=== PATIENT | female | born 1930 | race African-American/Black ===

== ENCOUNTER 2017-12-31 14:21 | Inpatient (IN) | payer OTHER ==
[~2017-12-31] VITALS: Ht 162.6 cm; Wt 82.1 kg
--- NOTE | ~2017-12-31 | 2DMMODE ---
[facility] [address] [address] 2 D/M-MODE ECHOCARDIOGRAM Name: RICHARD ANGEL Room #: 353-P [facility] IN .R.#: [id number] Admission: 12/31/17 Attend Phys: Clark Zamora, Discharge: Date of : 30 Date of Service: 01/01/18 1057 Report #: [id number] THIS REPORT FOR: //name// APPROVED REPORT Study performed: 01/01/2018 08:38:45 EXAM: Comprehensive 2D, Doppler, and color-flow Echocardiogram Patient Location: Bedside Room #: 353 Status: routine BSA: 1.87 HR: 58 bpm BP: 128/83 mmHg Other Information Study Quality: Good Indications CVA/TIA Pacemaker Hypertension/HDD Echo Enhancing Agent Indication: Rule out Shunt Agent(s) / Amount(s) Used: Agitated Saline 7 cc 2D Dimensions RVDd: 25.15 mm LVEF(%): 55.15 (>50%) IVSd: 14.46 (7-11mm) LVOT Diam: 17.88 (18-24mm) LVDd: 32.47 mm PWd: 15.98 (7-11mm) Ascending Ao: 25.09 (22-36mm) LVDs: 23.46 (25-40mm) Aortic Root: 28.06 mm IVC: 25.00 mm Nam's LVEF: 55.15 % Volumes Left Atrial Volume (Systole) Single Plane 4CH: 65.14 mL Single Plane 2CH: 129.80 mL LA ESV Index: 54.00 mL/m2 Aortic Valve AoV Peak Radhames.: 1.38 m/s AO Peak Gr.: 7.57 mmHg LVOT Max P.12 mmHg LVOT Max V: 0.88 m/s [facility] [address] [place] [address] 2 D/M-MODE ECHOCARDIOGRAM Name: RICHARD ANGEL Room #: 353-P [facility] IN M.R.#: [id number] Admission: 12/31/17 Attend Phys: Clark Zamora, Discharge: Date of : 30 Date of Service: 01/01/18 1057 Report #: [id number] TASHA Vmax: 1.61 cm2 Pulmonary Valve PV Peak Radhames.: 0.81 m/s PV Peak Gr.: 2.74 mmHg Tricuspid Valve TR Peak Radhames.: 2.76 m/s TR Peak Gr.: 30.55 mmHg PA Pressure: 45.00 mmHg Left Ventricle The left ventricle is normal size. Moderate concentric left ventricular hypertrophy. The left ventricular systolic function is normal. The left ventricular ejection fraction is within the normal range. LVEF is 55-60%. This study is not technically sufficient to allow evaluation of the LV diastolic function. Right Ventricle The right ventricle is normal size. The right ventricular systolic function is normal. Atria Left atrium is dilated. Right atrium is dilated. Aortic Valve The aortic valve is normal in structure. Aortic valve is calcified. No aortic regurgitation is present. There is no aortic valvular stenosis. Mitral Valve The mitral valve is normal in structure. Mild to moderate mitral regurgitation. No evidence of mitral valve stenosis. Tricuspid Valve The tricuspid valve is normal in structure. There is moderate tricuspid regurgitation. Estimated PAP 45 mmHg. There is moderate pulmonary hypertension. Pulmonic Valve The pulmonary valve is normal in structure. Mild pulmonic regurgitation. Great Vessels The aortic root is normal in size. The inferior vena cava is dilated with no inspiratory collapse. [facility] [address] [place] [address] 2 D/M-MODE ECHOCARDIOGRAM Name: RICHARD ANGEL Room #: 353-P [facility] IN M.R.#: [id number] Admission: 12/31/17 Attend Phys: Clark Zamora, Discharge: Date of : 30 Date of Service: 01/01/18 1057 Report #: [id number] Pericardium There is no pericardial effusion. <Conclusion> The left ventricle is normal size. Moderate concentric left ventricular hypertrophy. LVEF is 55-60%. Left atrium is dilated. Right atrium is dilated. The aortic valve is normal in structure. Aortic valve is calcified. The mitral valve is normal in structure. Mild to moderate mitral regurgitation. The tricuspid valve is normal in structure. There is moderate tricuspid regurgitation. Estimated PAP 45 mmHg. There is moderate pulmonary hypertension. The pulmonary valve is normal in structure. Mild pulmonic regurgitation. There is no pericardial effusion. <ELECTRONICALLY SIGNED> By: Papito Slater MD 01/01/18 1057 1057 105 Papito Slater MD /INF
--- NOTE | ~2017-12-31 | HC ---
[facility] [place] [address] CONSULTATION Name: RICHARD ANGEL Room #: 353-P ADM IN M.R.#: [id number] Admission: 12/31/17 Attend Phys: Clark Zamora MD Discharge: Date of : 30 Report #: [id number] THIS REPORT FOR: //name// CC: Clark Escobar TYPE OF REPORT: Infectious diseases consultation. REASON FOR CONSULTATION: I was asked to evaluate concerning urinary tract infection. HISTORY OF PRESENT ILLNESS: The patient is an 87-year old who has been hospitalized and placed in rehab facility over the last several months. She had recurring urinary tract infection. She has had a Gomes catheter placed. Presents now with decreased mental status and suspecting cerebrovascular disease. No fever, chills or sweats recorded. She was placed on ceftriaxone after admission. Urine studies are currently pending culture. ALLERGIES: CHOCOLATE and PENICILLIN. Does tolerate cephalosporins. MEDICATIONS: As noted on her MAR, which were reviewed. It is noted that she is on prednisone 20 mg a day prior to her admission. PAST MEDICAL HISTORY: Diabetes, heart disease, hypertension, chronic kidney disease and stroke. FAMILY HISTORY: Noncontributory. SOCIAL HISTORY: Nonsmoker. No significant alcohol intake. She now lives in a snf apartment and is assisted by her family members. REVIEW OF SYSTEMS: The patient was unable to give me details of her history. Most of the history was gleaned from the chart and review of the nursing records and previous consultations and Emergency Room record. PHYSICAL EXAMINATION: VITAL SIGNS: She was afebrile and hemodynamically stable. GENERAL: She would arouse and answer yes or no but was not coherent enough to take a history. There was no cough or sputum production. No reported nausea, vomiting or diarrhea. She does have an indwelling Gomes catheter. She was able to move all extremities. Moderately obese. SKIN: Unremarkable. LYMPHATIC: Unremarkable. CHEST: Clear. HEART: Regular, without murmur. ABDOMEN: Soft. Did not appear tender. No CVA tenderness. EXTREMITIES: Unremarkable. [facility] [address] [place] [address] CONSULTATION Name: RICHARD ANGEL Room #: 353-P ADM IN M.R.#: [id number] Admission: 12/31/17 Attend Phys: Clark Zamora MD Discharge: Date of : 30 Report #: [id number] LABORATORY DATA: Sodium 143, potassium 5.8, bicarbonate 24 and creatinine 2.8. Alkaline phosphatase 124, AST 30 and ALT 36. Hemoglobin 9.2; platelet count of 139,000 and white count was 3.6 with 82% segs and 9% lymphs. Urinalysis on admission, 25 wbc's, 20 rbc's, many bacteria and yeast present. Urine culture is pending. Repeat urine culture today showed rare wbc's, rare rbc's, few bacteria and yeast present. RADIOLOGICAL DATA: Ultrasound showed small kidneys. CT scan of the abdomen showed fecal impaction, edema, distended gallbladder, bilateral pleural effusions and right renal cyst suspect hemorrhagic. Chest x-ray, left lower lobe atelectasis. IMPRESSION: An 87-year old with chronic indwelling Gomes catheter. I am suspecting due to neurologic bladder symptoms. Now with bacteriuria and pyuria. Healthcare-associated organisms would be most likely. In addition, has fecal impaction. Has neurologic decline concerning for cerebrovascular insult. RECOMMENDATIONS: Neurology is to evaluate. She will continue on antibiotics tailored to healthcare-associated organisms. The patient has chronic kidney disease and will need adjustment of these medications. She does have drug allergy, which will be taken into consideration. She also has distended gallbladder, which need to be followed. I am suspecting this is most likely due to fasting state. She does have renal cyst, which appears hemorrhagic. Whether this is complicating matters or not is yet to be determined. We will need to follow and assess her culture results. <ELECTRONICALLY SIGNED> By: Khurram Horner MD 01/02/18 1028 1807 [id number] Khurram Horner MD /nt
--- NOTE | ~2017-12-31 | HC ---
[facility] [place] [address] CONSULTATION Name: RICHARD ANGEL Room #: 353-P ADM IN M.R.#: [id number] Admission: 12/31/17 Attend Phys: Clark Zamora MD Discharge: Date of : 30 Report #: [id number] THIS REPORT FOR: //name// CC: Clark Escobar DATE OF SERVICE: 01/01/2018 HISTORY OF PRESENT ILLNESS: This is an 87-year-old female patient who is unable to provide any reliable history at all. I talked to the family and got some history from them. The history I get in this patient is that she had a stroke in September. She was in [facility]. I do not have any records from there. Since then, she has been unable to stand and ambulate. She had weakness on the right side. She had multiple episodes of urinary tract infection. She becomes encephalopathic, but then becomes better. This has happened multiple times now. REVIEW OF SYSTEMS: Indicate she does take Xarelto. She does have kidney injury. She does have dysarthria. She has some difficulty with swallowing. I carried out 14-point review of system with the family. This was relevant 14-point review of system. I do not think her memory is as good as the family indicates and it definitely becomes worse with any kind of infection. Rest of the 14-point review of system was noncontributory. PAST MEDICAL HISTORY: Positive for CVA and encephalopathy. FAMILY HISTORY: Negative for early age strokes. SOCIAL HISTORY: She lives by herself, but family helps her and looks like she needs a lot of help at home. PHYSICAL EXAMINATION: Indicate she is alert. She is responsive. She thinks it is May. She becomes very irritable when more questions are asked. She becomes again irritable when examination is carried out. She becomes impulsive and jerks multiple things. Her memory is pretty poor. Cranial nerve examination 2-12 was attempted. She did not cooperate, but I do not see any focality. She can move all 4 extremities on my examination, but she will not cooperate with the rest of the examination. She did not understand the instruction for cerebellar signs. She does not appear to have any respiratory difficulty. She is obese. She can hear and understand things. She does not have any thyroid mass. Pulses are difficult to feel. She does not have any edema. Blood pressure is 123/78, respirations 20, pulse is 72 and temperature is 97.5. LABORATORY DATA: His hemoglobin is 9.2. GFR is 19. She did have a CT scan of the head, which demonstrated extensive atrophy. [address] [address] CONSULTATION Name: RICHARD ANGEL Room #: 353-P [facility] IN M.R.#: [id number] Admission: 12/31/17 Attend Phys: Clark Zamora MD Discharge: Date of : 30 Report #: [id number] IMPRESSION: This patient has multiple problems. She has dementia. Her CT scan is markedly abnormal. She probably has encephalopathy with the kidney dysfunction as well as other metabolic problems going on and she has a prior history of stroke. RECOMMENDATION: I discussed with the family that I will try to get the workup from [facility] rather than repeating it. I doubt we will have much to add because of multisystem problem as described above. Thank you very much for this referral. <ELECTRONICALLY SIGNED> By: Richard Corbett MD 01/04/18 1422 1938 [id number] Richard Corbett MD /nt
--- NOTE | ~2017-12-31 | EKG ---
[place] [address] [facility] [place] [address] ELECTROCARDIOGRAM REPORT Name: RICHARD ANGEL Room #: 170-4 ADM IN M.R.#: [id number] Admission: 12/31/17 Attend Phys: Clark Zamora MD Discharge: Date of : 30 Report #: [id number] THIS REPORT FOR: //name// [facility] ED Test Date: 2017-12-31 Test Time: 14:56:45 Pat Name: RICHARD ANGEL Department: Room: Gender: F Nnps: JOSIAS : 1930 Requested By: Bird Vanegas Order Number: [id number] MD: [facility] [place] Measurements Intervals [place] Rate: 60 P: 0 ID: 96 QRS: -78 QRSD: 158 T: 58 QT: 482 QTc: 482 Interpretive Statements Ventricular-paced rhythm No further analysis attempted due to paced rhythm No previous ECG available for comparison Electronically Signed On 12-31-2017 17:16:48 CDT by [facility] [place] [email or web address] <ELECTRONICALLY SIGNED> By: Ten [place]ows MD, [facility] 12/31/17 1716 D: [id number] [place] MD, FAC /EPI
--- NOTE | ~2017-12-31 | HC ---
[facility] [place] [address] CONSULTATION Name: RICHARD ANGEL Room #: 353-P ADM IN M.R.#: [id number] Admission: 12/31/17 Attend Phys: Clark Zamora MD Discharge: Date of : 30 Report #: [id number] THIS REPORT FOR: //name// CC: Clark Escobar REASON FOR CONSULTATION: Elevated creatinine. REASON FOR PRESENTATION: Sent from her rehab facility with worsening mental status issues. HISTORY OF PRESENT ILLNESS: Details were obtained from the patient. The family has an active issue with her mental status, confusion, and she is not able to provide me with the details of the history. The daughter, Tanya, gave me the details of the history. The mom is an 87-year-old with past medical history of hypertension, bradycardia, status post pacemaker insertion 5 years ago. She was in [facility] in early part of September. The mom called the daughter reporting that she is having issues with her gait, unsteadiness and was sent to [facility], where she was diagnosed with what was described as a CVA. The details of this hospitalization are not available for us. We have requested those records to be reviewed; however, we did not receive anything so far. The daughter tells me that her mom was completely functional before this whole thing started with her. She used to live in an assisted senior suites. She used to do all of her daily activities by herself. After the stroke, the patient started to have some issues with mental status, confusion, repeated urinary tract infection, unsteadiness. She was sent to a rehab facility after her [facility]. She was diagnosed with urinary tract infection Tanya, the daughter, told me that mom had been having some issues with frequency and was prescribed some medications by her primary care physician, Dr. Renny Escobar; however, this did not resolve her issues. On presentation to the Emergency Room, creatinine was found to be elevated at 2.8 with hyperkalemia mandating a nephrology consultation. In discussing her kidney issues with the daughter, the daughter told me that in [facility], she was told that her mother had very poor kidney function, but she did not provide me with the details of her creatinine levels. No nonsteroidal anti-inflammatory intake medications. No known personal or family history of nephrolithiasis, cystic kidney disease, connective tissue disorder, glomerulonephritis. PAST MEDICAL HISTORY: 1. Hypertension. 2. 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 3. Colon cancer resection in [facility] 10 years ago. 4. 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 She was also told that she might have ovarian cancer. She never received chemo or radiotherapy for both of those tumors. 5. Gout. [address] [address] CONSULTATION Name: RICHARD ANGEL Room #: 353-P ADM IN M.R.#: [id number] Admission: 12/31/17 Attend Phys: Clark Zamora MD Discharge: Date of : 30 Report #: [id number] 6. Hyperlipidemia. SOCIAL HISTORY: As I stated, she was in a rehab facility after [facility] hospitalization. Before that, she used to be in a [facility] suites. Nonsmoker. No drug or alcohol abuse. FAMILY HISTORY: Significant for diabetes mellitus and heart disease as per the daughter. REVIEW OF SYSTEMS: This was obtained from the daughter: GENERAL: Significant for weakness, unsteadiness of the gait. CARDIOVASCULAR: No chest pain or palpitation. PULMONARY: No cough or hemoptysis. GASTROINTESTINAL: Difficulty eating, poor appetite, occasional nausea. NEUROLOGICAL: As per the history of present illness. GENITOURINARY: She has a chronic Gomes catheter with frequency. MUSCULOSKELETAL: As per the history of present illness. MEDICATIONS: On presentation, the patient was on the followin. Flomax. 2. Eliquis. 3. Atorvastatin. 4. Metoprolol. 5. Diltiazem. 6. Aspirin. 7. Prednisone for unclear reasons to the daughter. She was placed on that when she was in [facility]. PHYSICAL EXAMINATION: GENERAL: The patient is confused. VITAL SIGNS: Blood pressure is 140/97, temperature is 37, pulse rate is 92, respiratory rate is 18. HEAD AND NECK: No thyromegaly, no bruit. CHEST: Limited air entry bilaterally, but no crackles or wheezes detected. CARDIOVASCULAR: No rub detected. ABDOMEN: Soft, nontender. LOWER EXTREMITIES: +2 edema. UPPER EXTREMITIES: +2 edema. LABORATORY DATA: Reviewed. Hemoglobin is 9.7. BUN is 64, creatinine is 2.4. Magnesium is 2.5. TSH is within normal range. UA is with 1+ blood, however, no red blood cells. Urine creatinine was less than 13. Urine sodium was 118. Renal ultrasound was consistent with small echogenic kidneys bilaterally with small bilateral renal cortical cysts. [facility] [address] [place] [address] CONSULTATION Name: RICHARD ANGEL Room #: 353-P ADM IN Noah#: [id number] Admission: 12/31/17 Attend Phys: Clark Zamora MD Discharge: Date of : 30 Report #: [id number] ASSESSMENT, IMPRESSION AND PLAN: 1. Chronic kidney disease based on the ultrasound finding associated with multiple cysts, hypertension. 2. Recent stroke with no available records to review. 3. Hypertension. 4. Atrial fibrillation. 5. Post-pacemaker insertion. 6. Remote history of colon cancer resection. 7. Remote history of tumor around the stomach resection. 8. Questionable history of ovarian cancer. 9. Her creatinine seems to be related to her chronic kidney disease. As of this morning, the most important thing is to try to obtain her medical records from [facility] and review her kidney function. 10. We will defer the management of her stroke-related issues to the Neurology Service. 11. She will need Gomes, PT, OT, speech therapy evaluation to decide about her input and output. 12. Avoid nephrotoxins. 13. Blood pressure seems to be reasonable. 14. Heart rhythm issues are being addressed. 15. Chronic Gomes catheter. 16. We will try to be as conservative as possible with the management of her chronic kidney disease given her recent issues and her comorbid conditions. 17. Her hyperkalemia had completely resolved. 18. She does have significant edema and will initiate on appropriate diuretic regimen. <ELECTRONICALLY SIGNED> By: Meron Medina MD 01/04/18 0734 0914 1146 Meron Medina MD /nt
[2017-12-31 14:24] VITALS: BP 116/79
[2017-12-31 15:05] LABS: ABSOLUTE NEUTROPHILS 3.3 thou/uL (1.4-8.2); BASOPHILS 0.5 % (0.0-2.0); EOSINOPHILS 0.9 % (0.0-3.0); HEMATOCRIT 28.4 % (37.0-47.0); HEMOGLOBIN 9.6 gm/dL (12.0-15.0); LYMPHOCYTES 9.9 % (24.0-44.0); MCH 33.6 pg (26.0-34.0); MCHC 33.8 g/dL (28.0-37.0); MCV 99.5 fL (80.0-100.0); MONOCYTES 6.2 % (1.0-8.0); PLATELET COUNT 160 thou/uL (150-400); POLYS 82.5 % (36.0-66.0); RBC 2.85 mil/uL (4.20-5.00); RDW 17.6 % (10.5-14.5)
[2017-12-31 15:15] LABS: CALCIUM 8.5 mg/dL (8.5-10.1); CREATININE 2.8 mg/dL (0.6-1.0); POTASSIUM 5.3 mmol/L (3.5-5.1)
[2017-12-31 15:21] LABS: APTT 36.2 Seconds (24.5-32.8); PROTIME 10.4 Seconds (9.3-11.4)
[2017-12-31] MEDS ORDERED: ALLOPURINOL 10100 M1 PO (15:21)
[2017-12-31] MEDS ORDERED: LIPITOR10 MG PO (15:22)
[2017-12-31] MEDS ORDERED: ELIQUIS2.5 MG PO (15:22)
[2017-12-31] MEDS ORDERED: CARDIZEM60 MG PO (15:22)
[2017-12-31 15:23] LABS: ALBUMIN 2.5 g/dL (3.4-5.0); TOTAL BILIRUBIN 0.3 mg/dL (<0.1-1.0); TOTAL PROTEIN 5.8 g/dL (6.4-8.2); TROPONIN-I 0.07 ng/mL (<0.06)
[2017-12-31] MEDS ORDERED: DUONEB 2.5-0.5 M3 ML INH (15:37)
[2017-12-31] MEDS ORDERED: VITAMIN D22000 UNIT PO (15:37)
[2017-12-31] MEDS ORDERED: LOPRESSOR100 M1 PO (15:37)
[2017-12-31] MEDS ORDERED: REMERON15 MG PO (15:40)
[2017-12-31] MEDS ORDERED: OMEPRAZOLE40 MG PO (15:41)
[2017-12-31] MEDS ORDERED: OXYBUTYNIN 5 MG5 M2 PO (15:41)
[2017-12-31] MEDS ORDERED: PREDNISONE 10 M10 MG PO (15:42)
[2017-12-31] MEDS ORDERED: FLOMAX0.4 MG PO (15:43)
[2017-12-31] MEDS ORDERED: ASPIR 8181 MG PO (15:43)
[2017-12-31 15:50] LABS: URINE BLOOD 3+ (Negative); URINE CLARITY SL CLOUDY; URINE COLOR BROWN; URINE GLUCOSE-RANDOM* NEGATIVE (Negative); URINE KETONES NEGATIVE (Negative); URINE NITRITE-REFLEX NEGATIVE (Negative); URINE PROTEIN (DIPSTICK) 2+ (Negative); URINE SPECIFIC GRAVITY >= 1.030 (1.005-1.035); URINE UROBILINOGEN 0.2 E.U./dl (0.2-1.0)
[2017-12-31 15:52] LABS: ICTOTEST (BILI CONFIRMATORY) Negative (Negative); URINE BILIRUBIN NEGATIVE (Negative); URINE LEUKOCYTES-REFLEX 2+ (Negative)
[2017-12-31 15:58] LABS: MUCUS 0-3 Light strn/LPF (None Seen); SQUAMOUS 0-3 Few /LPF (0-3)
[2017-12-31 15:59] LABS: CASTS None Seen /LPF (None Seen); CRYSTALS None Seen /LPF (None Seen); URINE RBC >20 Many /HPF (0-2); URINE WBC-REFLEX >25 Many /HPF (0-5); WBC CLUMPS Moderate (None Seen); YEAST-REFLEX Present (None Seen)
[2017-12-31 16:54] LABS: ALBUMIN 2.6 g/dL (3.4-5.0); TOTAL PROTEIN 5.7 g/dL (6.4-8.2)
[2017-12-31 17:24] LABS: TSH 2.583 uIU/mL (0.358-3.740)
[2018-01-01] VITALS (9 sets, daily range): BP systolic 110–139; BP diastolic 51–83
[2018-01-01 05:48] LABS: HEMATOCRIT 26.8 % (37.0-47.0); HEMOGLOBIN 9.2 gm/dL (12.0-15.0); MCH 34.1 pg (26.0-34.0); MCHC 34.4 g/dL (28.0-37.0); MCV 99.1 fL (80.0-100.0); RBC 2.71 mil/uL (4.20-5.00); RDW 17.3 % (10.5-14.5); WBC 3.6 thou/uL (4.0-11.0)
[2018-01-01 06:08] LABS: CALCIUM 8.1 mg/dL (8.5-10.1); CREATININE 2.8 mg/dL (0.6-1.0); MAGNESIUM 2.6 mg/dL (1.8-2.4); POTASSIUM 5.8 mmol/L (3.5-5.1)
[2018-01-01 11:35] LABS: URINE BILIRUBIN NEGATIVE (Negative); URINE BLOOD 1+ (Negative); URINE CLARITY CLEAR; URINE COLOR YELLOW; URINE GLUCOSE-RANDOM* NEGATIVE (Negative); URINE KETONES NEGATIVE (Negative); URINE LEUKOCYTES 1+ (Negative); URINE NITRITE NEGATIVE (Negative); URINE PROTEIN (DIPSTICK) NEGATIVE (Negative); URINE UROBILINOGEN 0.2 E.U./dl (0.2-1.0)
[2018-01-01 11:48] LABS: CASTS None Seen /LPF (None Seen); SQUAMOUS 0-3 Few /LPF (0-3); URINE WBC 0-5 Rare /HPF (0-5)
[2018-01-01 11:49] LABS: BACTERIA 1-9 Few /HPF (None Seen); CRYSTALS None Seen /LPF (None Seen); URINE RBC 0-2 Rare /HPF (0-2); YEAST Present (None Seen)
[2018-01-01 11:50] LABS: URINE CREATININE-RANDOM* <13 mg/dL; URINE SODIUM-RANDOM* 118 mmol/L
[2018-01-02 03:27] VITALS: BP 127/87
[2018-01-02 04:49] LABS: HEMOGLOBIN 9.7 gm/dL (12.0-15.0); MCH 33.2 pg (26.0-34.0); MCHC 33.4 g/dL (28.0-37.0); MCV 99.6 fL (80.0-100.0); RBC 2.91 mil/uL (4.20-5.00); RDW 17.5 % (10.5-14.5); WBC 4.7 thou/uL (4.0-11.0)
[2018-01-02 05:01] LABS: ALBUMIN 2.5 g/dL (3.4-5.0); CALCIUM 8.9 mg/dL (8.5-10.1); CREATININE 2.8 mg/dL (0.6-1.0); PHOSPHORUS 5.1 mg/dL (2.5-4.9); POTASSIUM 4.9 mmol/L (3.5-5.1)
[2018-01-02 08:24] VITALS: BP 142/97
[2018-01-02 12:52] VITALS: BP 136/81
[2018-01-02 17:32] VITALS: BP 127/79
[2018-01-02 20:00] VITALS: BP 134/82
[2018-01-03 05:00] VITALS: BP 117/93
[2018-01-03 05:40] LABS: HEMATOCRIT 26.9 % (37.0-47.0); HEMOGLOBIN 9.2 gm/dL (12.0-15.0); MCH 33.9 pg (26.0-34.0); MCHC 34.3 g/dL (28.0-37.0); MCV 98.7 fL (80.0-100.0); RBC 2.73 mil/uL (4.20-5.00); RDW 17.7 % (10.5-14.5)
[2018-01-03 06:20] LABS: ALBUMIN 2.4 g/dL (3.4-5.0); CALCIUM 8.8 mg/dL (8.5-10.1); CREATININE 2.6 mg/dL (0.6-1.0); POTASSIUM 4.7 mmol/L (3.5-5.1)
[2018-01-03 09:37] VITALS: BP 144/75
[2018-01-03 12:19] VITALS: BP 149/90
[2018-01-03 16:40] VITALS: BP 144/95
[2018-01-03 20:30] VITALS: BP 130/71
[2018-01-04 00:30] VITALS: BP 125/79
[2018-01-04 04:54] VITALS: BP 131/80
[2018-01-04 06:23] LABS: HEMATOCRIT 26.9 % (37.0-47.0); HEMOGLOBIN 8.8 gm/dL (12.0-15.0); MCH 33.1 pg (26.0-34.0); MCHC 32.7 g/dL (28.0-37.0); MCV 101.1 fL (80.0-100.0); RBC 2.67 mil/uL (4.20-5.00); RDW 18.1 % (10.5-14.5); WBC 4.2 thou/uL (4.0-11.0)
[2018-01-04 06:32] LABS: ALBUMIN 2.4 g/dL (3.4-5.0); CALCIUM 8.5 mg/dL (8.5-10.1); CREATININE 2.4 mg/dL (0.6-1.0); MAGNESIUM 2.3 mg/dL (1.8-2.4); PHOSPHORUS 4.4 mg/dL (2.5-4.9); POTASSIUM 4.5 mmol/L (3.5-5.1)
[2018-01-04 07:47] VITALS: BP 143/77
[2018-01-04] MEDS ORDERED: FLUCONAZOLE 10100 MG PO (09:16)
[2018-01-04] MEDS ORDERED: CEFUROXIME500 MG PO (09:16)
[2018-01-04 11:45] VITALS: BP 118/73
[2018-01-04] MEDS ORDERED: DOXYCYCLINE 10100 MG PO (15:07)
[2018-01-04 15:45] VITALS: BP 117/64
[2018-01-04 19:33] VITALS: BP 93/59
[2018-01-05 04:15] VITALS: BP 139/78
[2018-01-05 05:51] LABS: ALBUMIN 2.6 g/dL (3.4-5.0); CALCIUM 8.7 mg/dL (8.5-10.1); CREATININE 2.2 mg/dL (0.6-1.0); PHOSPHORUS 4.1 mg/dL (2.5-4.9)
[2018-01-05 07:46] VITALS: BP 140/88
[2018-01-05 12:12] VITALS: BP 146/100
[2018-01-05 16:48] VITALS: BP 148/95
[2018-01-05 20:05] VITALS: BP 124/73
[2018-01-06 05:03] VITALS: BP 128/86
[2018-01-06 07:36] VITALS: BP 121/80
[2018-01-06 11:32] VITALS: BP 135/72
[2018-01-06 15:18] VITALS: BP 131/62
[2018-01-06 19:25] VITALS: BP 138/90
[2018-01-06 19:35] VITALS: BP 128/66
[2018-01-07 04:00] VITALS: BP 125/76
[2018-01-07 05:49] LABS: ALBUMIN 2.5 g/dL (3.4-5.0); CALCIUM 8.8 mg/dL (8.5-10.1); CREATININE 2.2 mg/dL (0.6-1.0); PHOSPHORUS 3.5 mg/dL (2.5-4.9); POTASSIUM 4.5 mmol/L (3.5-5.1)
[2018-01-07 07:58] VITALS: BP 119/81
[2018-01-07 11:13] VITALS: BP 131/81
== END 2018-01-07 17:05 | DRG 871 ==
LOC: ER 14:21 → 3W 16:12 → EROBS 16:12 → 3W 01-01 01:12
PROVIDERS: Emergency Medicine; Hospitalist; Internal Medicine; Internal Medicine Nephrology
DX: A41.9 Sepsis, unspecified organism (principal); G93.40 Encephalopathy, unspecified; N17.9 Acute kidney failure, unspecified; N39.0 Urinary tract infection, site not specified; I69.351 Hemiplegia and hemiparesis following cerebral infarction affecting right dominant side; N18.4 Chronic kidney disease, stage 4 (severe); E11.22 Type 2 diabetes mellitus with diabetic chronic kidney disease; I12.9 Hypertensive chronic kidney disease with stage 1 through stage 4 chronic kidney disease, or unspecified chronic kidney disease; F03.90 Unspecified dementia, unspecified severity, without behavioral disturbance, psychotic disturbance, mood disturbance, and anxiety; R47.1 Dysarthria and anarthria; G47.00 Insomnia, unspecified; N31.9 Neuromuscular dysfunction of bladder, unspecified; N28.1 Cyst of kidney, acquired; E78.5 Hyperlipidemia, unspecified; D64.9 Anemia, unspecified; M10.9 Gout, unspecified; I48.91 Unspecified atrial fibrillation; E87.5 Hyperkalemia; R26.9 Unspecified abnormalities of gait and mobility; K59.00 Constipation, unspecified; Z95.0 Presence of cardiac pacemaker; Z85.038 Personal history of other malignant neoplasm of large intestine; Z85.028 Personal history of other malignant neoplasm of stomach; Z79.01 Long term (current) use of anticoagulants; Z79.82 Long term (current) use of aspirin; Z79.899 Other long term (current) drug therapy; Z88.0 Allergy status to penicillin; Z91.018 Allergy to other foods
CPT/HCPCS: 10879

== ENCOUNTER 2018-01-27 16:19 | Inpatient (IN) | payer OTHER ==
[~2018-01-27] VITALS: Ht 152.4 cm; Wt 75.3 kg
--- NOTE | ~2018-01-27 | EKG ---
[address] [place] [address] ELECTROCARDIOGRAM REPORT Name: DAKOTAH ANGEL Room #: 239- DIS IN M.R.#: [id number] Admission: 01/27/18 Attend Phys: Karri Del Cid MD Discharge: 01/28/18 Date of : 30 Report #: [id number] THIS REPORT FOR: //name// [facility] Test Date: 2018-01-28 Test Time: 13:14:14 Pat Name: DAKOTAH ANGEL Department: Room: 239 P Gender: F Chemical Handler: Terrell TAYLOR : 1930 Requested By: Michi Castillo Order Number: [id number] MD: [facility] [place] Measurements Intervals [place] Rate: 137 P: SC: QRS: -61 QRSD: 88 T: 83 QT: 314 QTc: 474 Interpretive Statements Atrial fibrillation Left anterior hemiblock Low voltage Compared to ECG 01/27/2018 16:54:50 No significant change was found Electronically Signed On 01-29-2018 8:23:50 CDT by [facility] [place] [email or web address] <ELECTRONICALLY SIGNED> By: Ten [place]ows MD, [facility] 01/29/18 0823 13 13 Ten Meadows MD, [facility] /EPI
--- NOTE | ~2018-01-27 | O ---
[facility] [place] [address] OPERATIVE REPORT Name: DAKOTAH ANGEL Room #: 239-P [facility] IN M.R.#: [id number] Admission: 01/27/18 Attend Phys: Karri Del Cid MD Discharge: 01/28/18 Date of : 30 Report #: [id number] THIS REPORT FOR: //name// CC: Juan Del Cid CLINICAL HISTORY: An 87-year-old female with profound sepsis, septic shock, respiratory failure. PROCEDURE PERFORMED: Elective intubation. DESCRIPTION OF PROCEDURE: Following discussion with the patient's daughter who is the DPOA, risks and benefits were discussed. The patient was given 5 mL of Diprivan. Then, a GlideScope was utilized. The vocal cords and epiglottis was visualized in the field. Then, a 7.5 ET tube was then placed through the guidewire without difficulty. ET tube was then secured at approximately 25 cm at the lip. We had good confirmation with color change on the capnometer. Portable chest x-ray, arterial blood gas is pending. <ELECTRONICALLY SIGNED> By: Michi Castillo MD 01/29/18 1626 1345 1439 Michi Castillo MD /nt
--- NOTE | ~2018-01-27 | HC ---
[facility] [place] [address] CONSULTATION Name: DAKOTAH ANGEL Room #: 239-P ADM IN M.R.#: [id number] Admission: 01/27/18 Attend Phys: Karri Del Cid MD Discharge: Date of : 30 Report #: [id number] THIS REPORT FOR: //name// CC: Juan Del Cid DATE OF SERVICE: 01/28/2018 REASON FOR CONSULTATION: I was asked to evaluate concerning septic shock. HISTORY OF PRESENT ILLNESS: The patient is an 87-year-old, known from her previous hospitalization on 12/31/2017 where she was diagnosed with catheter associated urinary tract infection due to Staphylococcus saprophyticus. Treated with a course of IV antibiotic therapy followed by oral therapy and was later dismissed to long-term. Over the last 48 hours, she has had more pulmonary complaints with congestion, cough and was placed on Levaquin. Yesterday was found unresponsive and was brought into the Emergency Room hypotensive, low grade fever, hypoxic. She was placed on BiPAP. Blood pressure was low and she was given over 4 liters of IV fluid. Blood pressure still did not respond and she was placed on vasopressors. She is currently on Levophed full dose and vasopressin. She has had minimal urine output over the last 8 hours. She is on BiPAP mask and complains of shortness of breath. She has had no chest pain. She has underlying atrial fibrillation and a permanent pacemaker. Blood sugars have been low despite supplementation with glucose. She does have underlying diabetes. She has had a previous stroke. Has had issues with aspiration risk and had been on nectar thick liquids. ALLERGIES: CHOCOLATE, PENICILLIN. Does tolerate cephalosporins. MEDICATIONS: As noted on her AUG. She was on 20 mg of prednisone prior to her arrival. She was on Levaquin prior to her arrival. Subsequently, has been put on vancomycin, aztreonam and metronidazole. PAST MEDICAL HISTORY: Diabetes, coronary artery disease, atrial fibrillation, permanent pacemaker, hypertension, chronic kidney disease, stroke, neurogenic bladder and urinary tract infection. FAMILY HISTORY: Noncontributory. SOCIAL HISTORY: Nonsmoker, no significant alcohol intake. Now lives in a long-term since her acute event last month. REVIEW OF SYSTEMS: The patient was unable to give any further information from 10-point review of systems due to the patient's respiratory status and being on BiPAP mask. She was, however, alert. [facility] [address] [place] [address] CONSULTATION Name: DAKOTAH ANGEL Room #: 239-P [facility] IN [facility]#: [id number] Admission: 01/27/18 Attend Phys: Karri Del Cid MD Discharge: Date of : 30 Report #: [id number] PHYSICAL EXAMINATION: VITAL SIGNS: Temperature is 99.9, heart rate 140, atrial fibrillation, blood pressure 96/54. She has a right IJ catheter in place. GENERAL: She is on BiPAP mask, has an indwelling Gomes catheter. She was alert, very weak, able to converse, but difficult to understand. She had 2+ anasarca. HEENT: Conjunctival eyes. Sclerae were clear. No conjunctivitis. BiPAP mask on. NECK: Supple, no thyromegaly or mass, right IJ catheter in place. LUNGS: Coarse bilaterally with consolidation heard in the mid posterior chest. CARDIOVASCULAR: Heart was tachycardic and irregular. No murmur or gallop appreciated. ABDOMEN: Soft, nontender, no hepatosplenomegaly or mass. GENITOURINARY: External genitalia unremarkable with indwelling Gomes catheter. Skin with small area of skin tear to the left arm and some tearing to her sacral region. NEUROLOGIC: She had weakness on the left side, but able to move all extremities. LABORATORY STUDIES: Chest x-ray with right middle lobe, lower lobe as well as left mid and lower lobe infiltrates. Ultrasound of left upper extremity negative for DVT. Hemoglobin 8.5, platelet count 91,000, white count 4.2 with 37% segs, 35% bands, 16% metamyelocytes, 15% myelocytes and 1 promyelocyte. Procalcitonin 21. Lactate 3.6. Sodium 141, potassium 4.2, bicarbonate 22, creatinine 2.5. Urinalysis 25 wbc's, 30 bacteria, yeast present. Blood and urine cultures are pending. IMPRESSION: 1. An 87-year-old now a long-term resident with healthcare associated aspiration pneumonia along with catheter associated, healthcare associated urinary tract infection, septic shock due to the above. Question also whether she is hypoadrenal given her longstanding prednisone dosing. 2. Previous stroke. 3. Respiratory failure. 4. Oliguric renal failure on top of chronic kidney disease. 5. Underlying diabetes with hypoglycemic episode related to her sepsis. 6. Neurogenic bladder. RECOMMENDATION: We will continue antibiotic coverage with vancomycin, meropenem, fluconazole, adjusted for renal failure. Check cortisol level and replace with hydrocortisone. Nephrology consultation for assistance with her acute renal failure. Full ICU support for shock with vasopressors and fluids as [facility] [address] [place] [address] CONSULTATION Name: DAKOTAH ANGEL Room #: 239-P ADM IN M.R.#: [id number] Admission: 01/27/18 Attend Phys: Karri Del Cid MD Discharge: Date of : 30 Report #: [id number] appropriate. Dulzura in this 87-year-old with multisystem failure is poor. I have discussed with nursing staff and medical team. <ELECTRONICALLY SIGNED> By: Khurram Horner MD 01/28/18 1355 [id number] Khurram Horner MD /nt
--- NOTE | ~2018-01-27 | HC ---
[facility] [place] [address] CONSULTATION Name: DAKOTAH ANGEL Room #: 239-P [facility] IN M.R.#: [id number] Admission: 01/27/18 Attend Phys: Karri Del Cid MD Discharge: 01/28/18 Date of : 30 Report #: [id number] THIS REPORT FOR: //name// CC: Juan Del Cid DATE OF SERVICE: 01/28/2018 PULMONARY AND CRITICAL CARE CONSULTATION REFERRING PHYSICIAN: Dr. Del Cid. REASON FOR REFERRAL: Severe sepsis, acute respiratory failure. HISTORY OF PRESENT ILLNESS: The patient is an 87-year-old female who was brought to the Emergency Room with altered mental status. She was found to be septic, suspected UTI and pneumonia. A pulmonary consultation was requested. The patient has multiple medical problems including history of CVA, slurred speech, multiple urinary tract infections, hypertension, atrial fibrillation on chronic anticoagulation, chronic kidney disease. According to the daughter, she had been living independently. She had been somewhat ambulatory, though history is conflicting. According to daughter, she was up and walking around, but the facility where she was from states that she was getting around with a wheelchair. Her health was fairly good until about 3 months ago when she had a stroke. She was noted to have increasing lower extremity edema. She had been treated for heart failure in the past. PAST MEDICAL HISTORY: As mentioned above, CVA in September treated at [facility], history of tobacco use, hypertension, status post permanent pacemaker placement, urinary tract infection. PAST SURGICAL HISTORY: As mentioned above, otherwise incomplete. We are awaiting records from the facility. ALLERGIES: PENICILLIN, REACTIONS NOT SPECIFIED. SHE IS ALSO ALLERGIC TO CHOCOLATES, WHICH CAUSES PRURITUS. MEDICATIONS: Lists are reviewed in the MAR. FAMILY HISTORY: Unknown. [facility] [address] [place] [address] CONSULTATION Name: DAKOTAH ANGEL Room #: 239-P [facility] IN M.R.#: [id number] Admission: 01/27/18 Attend Phys: Karri Del Cid MD Discharge: 01/28/18 Date of : 30 Report #: [id number] SOCIAL HISTORY: She has smoked in the past, but quit several years ago. She denies any alcohol use. She currently resides in a group home. REVIEW OF SYSTEMS: As mentioned above, otherwise deferred as the patient is on BiPAP. PHYSICAL EXAMINATION: GENERAL: She is arousable, but appears in moderate distress, tolerating BiPAP. VITAL SIGNS: Temperature is 98 degrees Fahrenheit, pulse is 120, respiratory rate is 28, blood pressure 90s-80s mmHg systolic, saturation ____ on BiPAP. HEENT: Normocephalic, atraumatic. NECK: Supple, without any lymphadenopathy or thyromegaly. CHEST: Breath sounds are fair, bilateral crackles. No wheezes. CARDIOVASCULAR: Irregular. No obvious murmurs or gallop. Pulses are 1+/4 bilaterally. BREASTS: Exam is deferred. ABDOMEN: Soft, nontender, no masses felt. GENITOURINARY: Deferred. RECTAL: Deferred. EXTREMITIES: There is no edema, cyanosis or clubbing. NEUROLOGIC: She is in moderate distress, arousable, appears weak. LABORATORY DATA: Portable chest x-ray shows moderate right-sided infiltrate that encompasses about two-thirds of the right lung field, cardiomegaly is present. Procalcitonin level is 21. Sodium 141, potassium 4.2, chloride 108, CO2 is 22, BUN is 63, creatinine is 2.3. Liver enzymes are moderately elevated. WBC is 3600 with significant bandemia, hemoglobin 9.0, platelets are moderately reduced. Albumin 1.1. Arterial blood gas on admission revealed pH 7.45, pCO2 of 36, pO2 of 95 on FiO2 100%. UA shows moderate bacteria. IMPRESSION: 1. Profound sepsis, septic shock due to urinary tract infection, probable pneumonia. She is currently on 2 vasopressors. 2. Acute hypoxic respiratory failure. Although oxygenation is adequate presently, due to profound septic shock, her oxygenation would worsen over time. 3. Acute kidney injury/chronic kidney disease. Overnight, the patient became anuric. 4. Profound hypotension due to septic shock, now on 2 vasopressors. 5. Thrombocytopenia due to severe sepsis. 6. Profound protein calorie malnutrition with an albumin of 1.1. 7. History of cerebrovascular accident, dysphonia. 8. Chronic atrial fibrillation, on chronic anticoagulation. 9. Hypertension. 10. Past history of chronic obstructive pulmonary disease. 11. Recent pneumonia, undergoing antibiotics, also on prednisone. 12. Aspiration risk due to cerebrovascular accident. [facility] [address] [place] [address] CONSULTATION Name: DAKOTAH ANGEL Room #: 239-P DIS IN M.R.#: [id number] Admission: 01/27/18 Attend Phys: Karri Del Cid MD Discharge: 01/28/18 Date of : 30 Report #: [id number] 13. Status post permanent pacemaker. RECOMMENDATION AND DISCUSSION: I would continue current medical therapy including vasopressors, sepsis protocol, IV fluids. In regards to respiratory status, because she is profoundly septic along with septic shock, concern this option and she will deteriorate another time. I would recommend elective intubation. Deep venous thrombosis and gastrointestinal prophylaxis will be addressed. Findings were discussed in detail with the patient's daughter. Thank you for this consultation. <ELECTRONICALLY SIGNED> By: Michi Castillo MD 01/29/18 1626 1343 1950 Michi Castillo MD /nt
--- NOTE | ~2018-01-27 | EKG ---
[address] [email or web address] [address] ELECTROCARDIOGRAM REPORT Name: DAKOTAH ANGEL Room #: 239-P ADM IN M.R.#: [id number] Admission: 01/27/18 Attend Phys: Karri Del Cid MD Discharge: Date of : 30 Report #: [id number] THIS REPORT FOR: //name// [facility] ED Test Date: 2018-01-27 Test Time: 16:54:50 Pat Name: DAKOTAH ANGEL Department: Room: 239 Gender: F Fitting Room Associate: as : 1930 Requested By: Adrián Soni Order Number: [id number] MD: [place] Measurements Intervals Wood Rate: 109 P: MT: QRS: -52 QRSD: 92 T: 68 QT: 324 QTc: 437 Interpretive Statements Atrial fibrillation Left anterior fascicular block Low voltage, extremity leads Compared to ECG 12/31/2017 14:56:45 Ventricular pacing no longer present Electronically Signed On 01-28-2018 8:23:09 CDT by [place] [email or web address] <ELECTRONICALLY SIGNED> By: [place] MD, [facility] 01/28/18 08 165 53 [place] MD, [facility] /EPI
[~2018-01-27 16:19] MED LIST: ALLOPURINOL 10100 M1 PO; ASPIR 8181 MG PO; CARDIZEM60 MG PO; CEFUROXIME500 MG PO; DOXYCYCLINE 10100 MG PO; DUONEB 2.5-0.5 M3 ML INH; ELIQUIS2.5 MG PO; FLOMAX0.4 MG PO; FLUCONAZOLE 10100 MG PO; LIPITOR10 MG PO; LOPRESSOR100 M1 PO; OMEPRAZOLE40 MG PO; OXYBUTYNIN 5 MG5 M2 PO; PREDNISONE 10 M10 MG PO; REMERON15 MG PO; VITAMIN D22000 UNIT PO
[2018-01-27 16:20] VITALS: BP 97/41
[2018-01-27 16:55] LABS: HEMATOCRIT 27.1 % (37.0-47.0); MCHC 33.2 g/dL (28.0-37.0); MCV 96.5 fL (80.0-100.0); PLATELET COUNT 95 thou/uL (150-400); RBC 2.81 mil/uL (4.20-5.00); RDW 16.3 % (10.5-14.5); WBC 3.6 thou/uL (4.0-11.0)
[2018-01-27 16:59] LABS: CALCIUM 8.4 mg/dL (8.5-10.1); CREATININE 2.6 mg/dL (0.6-1.0); POTASSIUM 4.8 mmol/L (3.5-5.1)
[2018-01-27 17:03] LABS: BE(vivo) 0.9 mmol/L (-2 to +3); HCO3 24.6 mmol/L (22.0-26.0); PO2 95.2 mmHg (80.0-100.0); pH 7.452 (7.360-7.450); sO2 97.6 % (92.0-98.0)
[2018-01-27 17:18] LABS: ABSOLUTE NEUTROPHILS 3.4 thou/uL (1.4-8.2)
[2018-01-27 17:19] LABS: ANISOCYTOSIS 1+; POLYCHROMASIA OCCASIONAL; TOXIC GRANULATION 2+
[2018-01-27 17:30] LABS: URINE BLOOD 3+ (Negative); URINE CLARITY CLEAR; URINE COLOR YELLOW; URINE GLUCOSE-RANDOM* NEGATIVE (Negative); URINE KETONES TRACE (Negative); URINE NITRITE-REFLEX NEGATIVE (Negative); URINE PROTEIN (DIPSTICK) 2+ (Negative); URINE UROBILINOGEN 0.2 E.U./dl (0.2-1.0)
[2018-01-27 17:34] LABS: ICTOTEST (BILI CONFIRMATORY) Negative (Negative); URINE BILIRUBIN NEGATIVE (Negative); URINE LEUKOCYTES-REFLEX 3+ (Negative)
[2018-01-27 17:38] LABS: CASTS None Seen /LPF (None Seen); CRYSTALS None Seen /LPF (None Seen); SQUAMOUS 0-3 Few /LPF (0-3); YEAST-REFLEX Present (None Seen)
[2018-01-27 17:39] LABS: URINE RBC 3-10 Few /HPF (0-2)
[2018-01-27 19:12] VITALS: BP 117/53
[2018-01-27 20:00] VITALS: BP 120/81
[2018-01-27 20:06] VITALS: BP 96/54
[2018-01-27 22:00] VITALS: BP 88/66
[2018-01-28] VITALS (35 sets, daily range): BP systolic 33–115; BP diastolic 18–78
[2018-01-28 00:03] LABS: CALCIUM 7.6 mg/dL (8.5-10.1); CREATININE 2.5 mg/dL (0.6-1.0); POTASSIUM 4.4 mmol/L (3.5-5.1)
[2018-01-28 04:08] LABS: BE(vivo) -6.2 mmol/L (-2 to +3); HCO3 18.5 mmol/L (22.0-26.0); PCO2 33.6 mmHg (35.0-45.0); PO2 66.7 mmHg (80.0-100.0); pH 7.359 (7.360-7.450); sO2 92.8 % (92.0-98.0)
[2018-01-28 05:04] LABS: CALCIUM 7.5 mg/dL (8.5-10.1); CREATININE 2.5 mg/dL (0.6-1.0); POTASSIUM 4.2 mmol/L (3.5-5.1)
[2018-01-28 05:07] LABS: HEMATOCRIT 26.4 % (37.0-47.0); HEMOGLOBIN 8.5 gm/dL (12.0-15.0); MCHC 32.4 g/dL (28.0-37.0); MCV 98.7 fL (80.0-100.0); PLATELET COUNT 91 thou/uL (150-400); RBC 2.67 mil/uL (4.20-5.00); RDW 16.6 % (10.5-14.5); WBC 4.2 thou/uL (4.0-11.0)
[2018-01-28 08:22] LABS: METAMYELOCYTES 16 %; MYELOCYTES 5 %; PLATELET ESTIMATE DECREASED; PROMYELOCYTES 1 %
[2018-01-28 08:23] LABS: TOXIC GRANULATION 2+
[2018-01-28 08:41] LABS: BE(vivo) -4.4 mmol/L (-2 to +3); HCO3 21.1 mmol/L (22.0-26.0); PCO2 40.2 mmHg (35.0-45.0); PO2 73.5 mmHg (80.0-100.0); pH 7.337 (7.360-7.450)
[2018-01-28 09:34] LABS: ALBUMIN 1.2 g/dL (3.4-5.0); DIRECT BILIRUBIN 0.4 mg/dL (<0.1-0.3); TOTAL BILIRUBIN 0.7 mg/dL (<0.1-1.0); TOTAL PROTEIN 4.4 g/dL (6.4-8.2)
[2018-01-28 13:49] LABS: CREATININE 2.7 mg/dL (0.6-1.0)
[2018-01-28 13:51] LABS: POTASSIUM 5.6 mmol/L (3.5-5.1)
[2018-01-30 23:09] LABS: ADENOVIRUS Negative (Negative); INFLUENZA A Negative (Negative); INFLUENZA B Negative (Negative); METAPNEUMOVIRUS Negative (Negative); PARAINFLUENZA 1 Negative (Negative); PARAINFLUENZA 2 Negative (Negative); PARAINFLUENZA 3 Negative (Negative); RHINOVIRUS Negative (Negative); RSV A Negative (Negative); RSV B Negative (Negative)
== END 2018-01-28 13:37 | DRG 314 ==
LOC: ER 16:19 → EROBS 18:00 → ICU 18:00
PROVIDERS: Emergency Medicine; Hospitalist; Internal Medicine Pulmonary Disease; Nurse Practitioner Acute Care; Specialist
PROC: B548ZZA Ultrasonography of Superior Vena Cava, Guidance (ICD-10-PCS; principal; 2018-01-27)
PROC: 02HV33Z Insertion of Infusion Device into Superior Vena Cava, Percutaneous Approach (ICD-10-PCS; principal; 2018-01-27)
PROC: 5A09357 Assistance with Respiratory Ventilation, Less than 24 Consecutive Hours, Continuous Positive Airway Pressure (ICD-10-PCS; principal; 2018-01-27)
PROC: 0BH17EZ Insertion of Endotracheal Airway into Trachea, Via Natural or Artificial Opening (ICD-10-PCS; 2018-01-28)
PROC: 5A1935Z Respiratory Ventilation, Less than 24 Consecutive Hours (ICD-10-PCS; 2018-01-28)
PROC: 5A09357 Assistance with Respiratory Ventilation, Less than 24 Consecutive Hours, Continuous Positive Airway Pressure (ICD-10-PCS; 2018-01-28)
DX: T80.211A Bloodstream infection due to central venous catheter, initial encounter (principal); A41.9 Sepsis, unspecified organism; J69.0 Pneumonitis due to inhalation of food and vomit; R65.21 Severe sepsis with septic shock; J96.01 Acute respiratory failure with hypoxia; N39.0 Urinary tract infection, site not specified; N17.9 Acute kidney failure, unspecified; I25.10 Atherosclerotic heart disease of native coronary artery without angina pectoris; I12.9 Hypertensive chronic kidney disease with stage 1 through stage 4 chronic kidney disease, or unspecified chronic kidney disease; E11.22 Type 2 diabetes mellitus with diabetic chronic kidney disease; Y83.8 Other surgical procedures as the cause of abnormal reaction of the patient, or of later complication, without mention of misadventure at the time of the procedure; E11.65 Type 2 diabetes mellitus with hyperglycemia; N31.9 Neuromuscular dysfunction of bladder, unspecified; D69.6 Thrombocytopenia, unspecified; I48.2 Chronic atrial fibrillation; Z86.73 Personal history of transient ischemic attack (TIA), and cerebral infarction without residual deficits; Z95.0 Presence of cardiac pacemaker; Z88.0 Allergy status to penicillin; Z87.891 Personal history of nicotine dependence; Z79.01 Long term (current) use of anticoagulants; Y92.89 Other specified places as the place of occurrence of the external cause; Z51.5 Encounter for palliative care
CPT/HCPCS: 10078; 27000